=== PATIENT | female | born 1930 | race Caucasian/White ===

== ENCOUNTER 2017-04-08 22:22 | Emergency (ER) | payer MEDICARE, OTHER ==
[~2017-04-08] VITALS: Ht 165.1 cm; Wt 79.8 kg
[~2017-04-08 22:22] MED LIST: ASPI325; ATOR10; ATOR40TA; BENAML10/5; SERT50; TRIHYD253B
[2017-04-08] MEDS ORDERED: METO100ER PO (22:55)
[2017-04-08] MEDS ORDERED: AMLO5 PO (22:56)
[2017-04-08] MEDS ORDERED: GLIP10 PO (22:56)
[2017-04-08] MEDS ORDERED: BENA20 PO (22:56)
[2017-04-08 23:07] LABS: BASOPHILS ABSOLUTE AUTO 0.02 K/mm3 (0.00-0.23); BASOPHILS PERCENT AUTO 0 % (0-2); EOSINOPHILS ABSOLUTE AUTO 0.15 K/mm3 (0.00-0.68); EOSINOPHILS PERCENT AUTO 1 % (0-6); Hematocrit 43.9 % (33.0-51.0); Hemoglobin 14.6 g/dL (11.5-16.0); IMMATURE GRAN ABSOLUTE AUTO 0.04 K/mm3 (0.00-0.10); IMMATURE GRAN PERCENT AUTO 0 % (0-1); LYMPHOCYTES ABSOLUTE AUTO 3.82 K/mm3 (0.84-5.20); LYMPHOCYTES PERCENT AUTO 30 % (21-46); MONOCYTES PERCENT AUTO 8 % (4-13); Mean Corpuscular HGB 30.4 pg (26.0-34.0); Mean Corpuscular HGB Conc 33.3 g/dL (31.5-36.5); Mean Corpuscular Volume 91 fL (80-100); Mean Platelet Volume 10.6 fL (9.1-12.4); NEUTROPHILS PERCENT AUTO 61 % (41-73); Platelet Count 244 K/mm3 (150-400); RDW Coefficient Variation 12.8 % (11.7-14.2); RDW Standard Deviation 42.8 fL (35.1-46.3); Red Blood Cell Count 4.81 M/mm3 (3.80-5.20); White Blood Cell Count 12.93 K/mm3 (4.00-11.30)
[2017-04-08 23:26] LABS: Alanine Aminotransfer (ALT/SGP 20 U/L (12-78); Albumin, Blood 3.6 g/dL (3.4-5.0); Alk Phos 120 U/L (50-136); Anion Gap 9 mmol/L (6-16); Aspartate Aminotrans (AST/SGOT 21 U/L (12-37); Bilirubin, Total 0.4 mg/dL (0.1-1.0); Blood Urea Nitrogen 14 mg/dL (8-24); Bun/Creatinine Ratio 18.7 (12.0-20.0); CO2, Blood 25 mmol/L (21-32); Calcium, Blood 8.5 mg/dL (8.5-10.1); Chloride, Blood 106 mmol/L (98-108); Creatinine, Blood 0.75 mg/dL (0.40-1.00); Globulin, Blood 3.7 g/dL (2.2-4.0); Glomerular Filtration Rate >60 (60-); Glucose, Blood 146 mg/dL (70-99); Potassium, Blood 3.7 mmol/L (3.5-5.5); Sodium, Blood 140 mmol/L (136-145); Total Protein, Blood 7.3 g/dL (6.4-8.2); Troponin I <0.015 ng/mL (0.000-0.040)
[2017-04-08 23:28] LABS: PCO2 Arterial 36.7 mmHg (35-45); PO2 Arterial 64.4 mmHg (80-100); pH Blood Arterial 7.43 (7.35-7.45)
== END 2017-04-09 02:21 | disposition home or self-care (01) ==
LOC: ER 22:22
PROVIDERS: Emergency Medicine
DX: R04.2 Hemoptysis (principal); J44.9 Chronic obstructive pulmonary disease, unspecified; E11.9 Type 2 diabetes mellitus without complications; Z79.899 Other long term (current) drug therapy; Z87.891 Personal history of nicotine dependence
CPT/HCPCS: 36600; 71046; 71260; 80053; 82803; 83880; 84484; 85025; 93005; 93010; 99284; Q9967

== ENCOUNTER 2019-02-24 20:02 | Emergency (ER) | payer MEDICARE, OTHER ==
[~2019-02-24] VITALS: Ht 157.5 cm; Wt 77.1 kg
[~2019-02-24 20:02] MED LIST changes: +AMLO5 PO; +BENA20 PO; +GLIP10 PO; +METO100ER PO
[2019-02-24] MEDS ORDERED: ASPI325 PO (21:21)
[2019-02-24] MEDS ORDERED: BREO ELLIPTA 11 EACH IH (21:21)
[2019-02-24] MEDS ORDERED: THERA-D2000 UNIT PO (21:22)
== END 2019-02-24 22:03 | disposition home or self-care (01) ==
LOC: ER 20:02
DX: S01.01XA Laceration without foreign body of scalp, initial encounter (principal); J44.9 Chronic obstructive pulmonary disease, unspecified; Z23 Encounter for immunization; Z79.899 Other long term (current) drug therapy; Z79.84 Long term (current) use of oral hypoglycemic drugs; Z79.82 Long term (current) use of aspirin; Z87.891 Personal history of nicotine dependence; W22.8XXA Striking against or struck by other objects, initial encounter
CPT/HCPCS: 12002; 70450; 90471; 90714; 99283-25

== ENCOUNTER 2020-01-04 10:33 | Inpatient (IN) | payer MEDICARE, OTHER ==
[~2020-01-04] VITALS: Ht 154.9 cm; Wt 75.4 kg
[~2020-01-04 10:33] MED LIST changes: +ASPI325 PO; +BREO ELLIPTA 11 EACH IH; +Vitamin D2000 UNIT PO
[2020-01-04 11:00] LABS: Base Excess Venous -1.9 mmol/L; PO2 Venous 138 mmHg (38-42); pH Blood Venous 7.37 (7.34-7.37)
[2020-01-04 11:14] LABS: BASOPHILS ABSOLUTE AUTO 0.08 K/mm3 (0.00-0.23); BASOPHILS PERCENT AUTO 0 % (0-2); EOSINOPHILS ABSOLUTE AUTO 0.06 K/mm3 (0.00-0.68); EOSINOPHILS PERCENT AUTO 0 % (0-6); Hematocrit 45.6 % (33.0-51.0); Hemoglobin 14.7 g/dL (11.5-16.0); IMMATURE GRAN ABSOLUTE AUTO 0.08 K/mm3 (0.00-0.10); IMMATURE GRAN PERCENT AUTO 0 % (0-1); LYMPHOCYTES ABSOLUTE AUTO 1.64 K/mm3 (0.84-5.20); LYMPHOCYTES PERCENT AUTO 8 % (21-46); MONOCYTES ABSOLUTE AUTO 0.94 K/mm3 (0.16-1.47); MONOCYTES PERCENT AUTO 5 % (4-13); Mean Corpuscular HGB 29.8 pg (26.0-34.0); Mean Corpuscular HGB Conc 32.2 g/dL (31.5-36.5); Mean Corpuscular Volume 92 fL (80-100); Mean Platelet Volume 10.9 fL (9.1-12.4); NEUTROPHILS ABSOLUTE AUTO 17.33 K/mm3 (1.96-9.15); NEUTROPHILS PERCENT AUTO 86 % (41-73); Platelet Count 258 K/mm3 (150-400); RDW Coefficient Variation 13.2 % (11.7-14.2); RDW Standard Deviation 44.6 fL (35.1-46.3); Red Blood Cell Count 4.94 M/mm3 (3.80-5.20); White Blood Cell Count 20.13 K/mm3 (4.00-11.30)
[2020-01-04 11:17] LABS: Alanine Aminotransfer (ALT/SGP 21 U/L (12-78); Albumin, Blood 3.5 g/dL (3.4-5.0); Alk Phos 103 U/L (50-136); Anion Gap 6 mmol/L (6-16); Aspartate Aminotrans (AST/SGOT 22 U/L (12-37); Bilirubin, Total 0.7 mg/dL (0.1-1.0); Blood Urea Nitrogen 16 mg/dL (8-24); Bun/Creatinine Ratio 21.1 (12.0-20.0); CO2, Blood 24 mmol/L (21-32); Calcium, Blood 9.1 mg/dL (8.5-10.1); Chloride, Blood 112 mmol/L (98-108); Creatinine, Blood 0.76 mg/dL (0.40-1.00); Globulin, Blood 3.6 g/dL (2.2-4.0); Glomerular Filtration Rate >60 (60-); Glucose, Blood 141 mg/dL (70-99); Sodium, Blood 142 mmol/L (136-145); Total Protein, Blood 7.1 g/dL (6.4-8.2)
[2020-01-04] MEDS ORDERED: ATOR40TA PO (12:12)
[2020-01-04] MEDS ORDERED: TRELEGY ELLIPT1 EACH INH (12:13)
[2020-01-04] MEDS ORDERED: AMLODIPINE BESYL5 MG PO (12:14)
[2020-01-04] MEDS ORDERED: POTASSIUM GLUCO90 M1 PO (12:14)
[2020-01-04] MEDS ORDERED: BENAZEPRIL HCL20 M1 PO (12:14)
[2020-01-04] MEDS ORDERED: GLIP10 PO (12:15)
[2020-01-04] MEDS ORDERED: SERT100 PO (12:15)
[2020-01-04] MEDS ORDERED: Aspirin EC81 MG PO (12:16)
--- NOTE | 2020-01-04 19:33 | NUR ---
ADMIT NOTE RECEIVED REPORT FROM PABLO GUTHRIE IN ED. PT TRANSFERED TO BED VIA SLIDER SHEET. PT AND DAUGHTER ORIENTED TO ROOM AND CALL LIGHT. EDUCATED ON FALL RISK AND AMBULATING WITH ASSISTANCE. PT A&Ox3; [place]; CALM AND COOPERATIVE WITH CARE. PT RESTING IN BED DURING SHIFT. UP TO BSC WITH 1 PERSON ASSIST AND WALKER. PT SOB WITH EXERTION, SPO2 >90% ON 10L O2 VIA NC, NO DESATURATION NOTED WITH TRANSFER TO BSC. BIPAP AT BEDSIDE FOR RESCUE. PT DENIES PAIN, CHEST PAIN, NAUSEA AND DIZZINESS. VSS. NO OTHER ACUTE CHANGES NOTED DURING SHIFT. REPORT GIVEN TO ONCOMING RN.
[2020-01-05 05:28] LABS: Hematocrit 40.2 % (33.0-51.0); Mean Corpuscular HGB 29.3 pg (26.0-34.0); Mean Corpuscular HGB Conc 32.3 g/dL (31.5-36.5); Mean Corpuscular Volume 91 fL (80-100); Mean Platelet Volume 11.3 fL (9.1-12.4); Platelet Count 209 K/mm3 (150-400); RDW Coefficient Variation 13.2 % (11.7-14.2); RDW Standard Deviation 44.1 fL (35.1-46.3); Red Blood Cell Count 4.43 M/mm3 (3.80-5.20); White Blood Cell Count 10.62 K/mm3 (4.00-11.30)
[2020-01-05 06:00] LABS: Anion Gap 9 mmol/L (6-16); Blood Urea Nitrogen 26 mg/dL (8-24); CO2, Blood 23 mmol/L (21-32); Calcium, Blood 8.9 mg/dL (8.5-10.1); Chloride, Blood 106 mmol/L (98-108); Creatinine, Blood 0.72 mg/dL (0.40-1.00); Glomerular Filtration Rate >60 (60-); Glucose, Blood 204 mg/dL (70-99); Potassium, Blood 3.9 mmol/L (3.5-5.5); Sodium, Blood 138 mmol/L (136-145)
--- NOTE | 2020-01-05 06:27 | NUR ---
SUMMARY NO ACUTE CHANGES NOTED, PT IS NOW ON 8 L VIA NC, LUNGS REMAIN COARSE W/WHEEZES THROUGH OUT. PT DENIES SOB AT REST, DYSPNEA NOTED WITH ACTIVITY, DENIES CP/PRESSURE. SHE HAS BEEN A&O X3, TOLERATING PO INTAKE, CALLS FOR ASSISTANCE PRN. LEFT ARM ELEVATED WHEN POSSIBLE DUE TO IV INFILTRATE, BRUISING/EDEMA NOTED, EDEMA IMPROVING, PT DENIES PAIN AT THE SITE. WCTM & REPORT TO DAY RN, CALL LIGHT IN REACH.
[2020-01-05 09:41] LABS: Adenovirus Not Detected (NOT DETECT); Bordetella pertussis Not Detected (NOT DETECT); Chlamydophila pneumoniae Not Detected (NOT DETECT); Coronavirus 229E Not Detected (NOT DETECT); Coronavirus HKU1 Not Detected (NOT DETECT); Coronavirus NL63 Not Detected (NOT DETECT); Coronavirus OC43 Not Detected (NOT DETECT); Human Metapneumovirus Not Detected (NOT DETECT); Human Rhinovirus/Enterovirus Not Detected (NOT DETECT); Influenza A/2009-H1 Not Detected (NOT DETECT); Influenza A/H1 Not Detected (NOT DETECT); Influenza A/H3 Not Detected (NOT DETECT); Influenza B Not Detected (NOT DETECT); Mycoplasma pneumoniae Not Detected (NOT DETECT); Parainfluenza Virus 1 Not Detected (NOT DETECT); Parainfluenza Virus 2 Not Detected (NOT DETECT); Parainfluenza Virus 3 Not Detected (NOT DETECT); Parainfluenza Virus 4 Not Detected (NOT DETECT); Respiratory Syncytial Virus Not Detected (NOT DETECT); SARS-Cov-2 (COVID-19), BioFire Not Detected (NOT DETECT)
--- NOTE | 2020-01-05 12:43 | NUR ---
Echocardiogram performed by Rowena Larry under my oversight.
--- NOTE | 2020-01-05 17:58 | NUR ---
SHIFT SUMMARY PT A&Ox3; CONFUSED FIRST THING THIS AM, REORIENTED EASILY. PT CALLS APPROPRIATELY. PT SOB WITH MOVEMENT AND LYING FLAT; SPO2 92% ON 8L O2 VIA OXYMIZER T/O SHIFT. PT DENIES PAIN, CHEST PAIN, [place] AND DIZZINESS. ECHO COMPLETED THIS AFTERNOON. RT FOR BREATHING TREATMENTS; AND CARDIOPULMONARY EDUCATION. PT COUGHING UP THICK GREEN/PINKISH SPUTUM. VSS. NO OTHER ACUTE CHANGES NOTED DURING SHIFT. WILL CONTINUE TO MONITOR UNTIL REPORT GIVEN TO ONCOMING RN.
--- NOTE | 2020-01-05 22:02 | NUR ---
ASSUMED CARE OF PATIENT AT APPROXIMATELY 1905 FROM LANRE Mendoza RN. PATIENT ALERT AND ORIENTED TO SELF, , DATE AND HOSPITAL; CONFUSED OFF AND ON. PATIENT VERY HARD OF HEARING. ONE ASSIST W/ FWW TO BEDSIDE COMMODE; ATTENDS IN PLACE. PATIENT DENIES PAIN, NUMBNESS, TINGL[place], DIZZINESS OR NAUSEA. NSR ON TELE; OXYGEN SATURATION ABOVE 90% ON 8LPM VIA OXYMIZER (RA BASELINE). PIV S/L. PATIENT CURRENTLY RESTING IN BED; CALL LIGHT IN REACH; BED IN LOWEST POSISTION; BED ALARM ON; WILL CONITNUE TO MONITOR AND ASSESS UNTIL END OF SHIFT.
--- NOTE | 2020-01-06 08:50 | NUR ---
DR. GILES AT BEDSIDE. DISCUSSED POC. ASKED FOR A MEETING WITH FAMILY AND PALLIATIVE CARE AT 1030 TO DISCUSS HOSPICE VS. SURGERY. KOURTNEY WANTED HER DAUGHTER TO COME DISCUSS HOSPICE VS. SURGERY OPTIONS. I CALLED THE PATIENT'S DAUGHTER LEE WITH KOURTNEY'S PERMISSION. LEE SAID THAT SHE WOULD BE ABLE TO COME TO THE MEETING AT 1030 AND THAT THEIR PLAN WAS TO GO WITH HOSPICE. KOURTNEY ALSO STATED THAT SHE WANTS TO GO HOME AND DOES NOT WANT SURGERY.
--- NOTE | 2020-01-06 09:15 | NUR ---
PATIENT'S IV SITE BRUISED, WITH SMALL AMOUNT OF PUFFINESS ARUOND INSERTION SITE, TENDER UPON FLUSH. UNABLE TO GIVE LASIX OR SOLU-MEDROL WITH AM MEDS. CALLED DR. GILES TO SEE IF SHE WANTED ANOTHER IV PLACED PATIENT AND FAMILY ARE CHOOSING HOSPICE. DR. GILES STATED TO PLACE ANOTHER IV AND CONTINUE CURRENT TREATMENT WHILE PATIENT IS IN THE HOSPITAL.
--- NOTE | 2020-01-06 10:52 | NUR ---
Family, Palliative care (oh carbajal), Dr. Padilla, and office workforce planner all here to discuss plan of pt's care post discharge.
--- NOTE | 2020-01-06 16:15 | NUR ---
CONTACTED WITH NEW REFERRAL AND REQUEST TO ATTEND FAMILY MEETING PER RN AND RT. Prior to the family meeting I had received an update on current status and issues facing pt/family and decision making they were working on from Dr Padilla. Pt was in bed with HOB in high position, O2 with nasal pillow/oximizer in place. She was breathless/dyspnic at rest and flushed. She reports feeling much better now than she was on admission and she is alert and oriented and able to participate in the conversation if she can hear what is being said. She is extremely [place]. Her delia, august and son were present and came prepared with questions. Delia had already been in contact with [facility] hospice and after Dr did thorough explanation of challenges to pt's ongoing health, Delia and pt expressed that she would prefer to go home with hospice and not return to the hospital for anticipated recurrent exacerbations of aortic stenosis, CHF and COPD. Disciplines present for the meeting in addition to myself and Dr were CM and RN. CM to assist delia in the set up of Hospice and equipment thru [facility] per daughter's request. Daughter's questions re: medications and process with hospice care were answered to her satisfaction and she was encouraged to get some rest and let CM help her with arranging her mom's post hospital care. She and the family cared for her dad on HH and Hospice at home and had some knowledge and experience with this previously.
--- NOTE | 2020-01-06 18:08 | NUR ---
Maddison has been cheerful, and looking forward to going home tomorrow. She has been eating well, voiding and had a bowel movement today. Vital signs are stable and her oxygen was decreased to 6 l/min by the end of today. She has had no complaints and blood sugars have been well controlled, despite ongoing solumedrol.
--- NOTE | 2020-01-07 06:20 | NUR ---
SHIFT SUMMARY PT IS AN 89 Y/O FEMALE, ADMITTED FOR COPD EXACERBATION. SHE IS A&O X 2, FORGETFUL, SBA TO THE BATHROOM WITH A FWW. SHE IS ON 5L OF O2 VIA NC. TELE SHOWED NSR @ 73. VITAL SIGNS OTHERWISE STABLE. NO COMPLAINTS OF ACUTE PAIN, NAUSEA OR SOB. PT SLEPT WELL THROUGH THE NIGHT. NO ACUTE CHANGES IN PT CONDITION NOTED. WILL CONTINUE TO MONITOR AND TREAT PER EMAR UNTIL HAND OFF TO DAY SHIFT RN.
--- NOTE | 2020-01-07 08:35 | NUR ---
DR. GILES AT BEDSIDE. DISCUSSED POC. PATIENT DOWN TO 5L O2 VIA CT. PLAN IS TO GO HOME WITH HOSPICE VIA [facility] AT 1000.
[2020-01-07] MEDS ORDERED: ALBU2.5V5 INH (10:53)
[2020-01-07] MEDS ORDERED: BENMENLOZ MT (10:56)
[2020-01-07] MEDS ORDERED: MELATONIN5 M1 PO (10:56)
[2020-01-07] MEDS ORDERED: FURO40 PO (10:56)
[2020-01-07] MEDS ORDERED: PRED20 PO (10:57)
--- NOTE | 2020-01-07 12:31 | NUR ---
The pt was assisted from the chair after fininishing lunch to the bathroom to void. EMT from [facility] wheelchair transport arrived and pt got into the wheelchair, wearing oxygen at 6 l/min as the o2 delivery options on the tank are only in even numbered increments. Pt is cheerful, and states eager to go home. Personal belongings went with the pt.
== END 2020-01-07 13:06 | disposition hospice, home (50) | DRG 189 ==
LOC: ER 10:33 → PCU 12:40
PROVIDERS: Emergency Medicine; Internal Medicine; Nurse Practitioner Acute Care; ADMIT Hospitalist
PROC: 5A09357 Assistance with Respiratory Ventilation, Less than 24 Consecutive Hours, Continuous Positive Airway Pressure (ICD-10-PCS; principal; 2020-01-04)
DX: J96.01 Acute respiratory failure with hypoxia (principal); J18.9 Pneumonia, unspecified organism; J44.1 Chronic obstructive pulmonary disease with (acute) exacerbation; J44.0 Chronic obstructive pulmonary disease with (acute) lower respiratory infection; Z87.891 Personal history of nicotine dependence; Z79.84 Long term (current) use of oral hypoglycemic drugs; Z79.82 Long term (current) use of aspirin; F32.9 Major depressive disorder, single episode, unspecified; E78.5 Hyperlipidemia, unspecified; I35.0 Nonrheumatic aortic (valve) stenosis; I50.9 Heart failure, unspecified; I11.0 Hypertensive heart disease with heart failure; Z20.828 Contact with and (suspected) exposure to other viral communicable diseases
CPT/HCPCS: 0202U; 36415; 71045; 80048; 80053; 82803; 82947; 83880; 84145; 85025; 85027; 87449; 93005; 93010; 93306; 94640; 94644; 94660; 94664; 94667; 94762; 96365; 96367; 96375; 98960; 99285-25; A9270-GY; G0008; J0456; J0696; J1650; J1940; J2920; J2930; J3475; J7030; J7050; Q2038

== ENCOUNTER 2020-04-17 11:25 | Emergency (ER) | payer MEDICARE, OTHER ==
[~2020-04-17] VITALS: Ht 160 cm; Wt 72.6 kg
[~2020-04-17 11:25] MED LIST changes: +ALBU2.5V5 INH; +AMLODIPINE BESYL5 MG PO; +ATOR40TA PO; +Aspirin EC81 MG PO; +BENAZEPRIL HCL20 M1 PO; +BENMENLOZ MT; +FURO40 PO; +MELATONIN5 M1 PO; +POTASSIUM GLUCO90 M1 PO; +PRED20 PO; +SERT100 PO; +TRELEGY ELLIPT1 EACH INH
== END 2020-04-17 14:05 | disposition home or self-care (01) ==
LOC: ER 11:25
DX: S01.01XA Laceration without foreign body of scalp, initial encounter (principal); J44.9 Chronic obstructive pulmonary disease, unspecified; I10 Essential (primary) hypertension; Z87.891 Personal history of nicotine dependence; Z79.52 Long term (current) use of systemic steroids; Z79.899 Other long term (current) drug therapy; Z79.82 Long term (current) use of aspirin; Z79.84 Long term (current) use of oral hypoglycemic drugs; W18.30XA Fall on same level, unspecified, initial encounter
CPT/HCPCS: 99283